=== PATIENT | male | born 1990 | race Caucasian/White ===

== ENCOUNTER 2023-07-29 22:38 | Emergency (ER) | payer SELFPAY ==
[~2023-07-29] VITALS: Ht 180.3 cm; Wt 78.0 kg
[2023-07-29 22:57] VITALS: BP 139/76; PULSE 70; RESP 18; TEMP 98; O2SAT 98
== END 2023-07-29 23:49 | disposition left against medical advice (07) ==
LOC: ER 22:38
DX: T14.8XXA Other injury of unspecified body region, initial encounter (principal); Z53.21 Procedure and treatment not carried out due to patient leaving prior to being seen by health care provider; X58.XXXA Exposure to other specified factors, initial encounter; Y93.89 Activity, other specified; Y92.89 Other specified places as the place of occurrence of the external cause; Y99.8 Other external cause status
CPT/HCPCS: 99281